=== PATIENT | female | born 1980 ===

== ENCOUNTER 2018-01-27 16:34 | Emergency (ER) | payer MEDICAID ==
[2018-01-27 16:38] VITALS: RESP 20
[2018-01-27 17:02] LABS: HCG,QUALITATIVE URINE POSITIVE (NEGATIVE)
[2018-01-27 17:08] LABS: SQUAMOUS EPITHIAL 3 /hpf (0-5); URINE BACTERIA MANY (<OCC); URINE BILIRUBIN NEGATIVE (NEGATIVE); URINE BLOOD NEGATIVE (NEGATIVE); URINE CLARITY Hazy (Clear); URINE COLOR Yellow (YELLOW); URINE GLUCOSE (UA) NORMAL (Normal); URINE LEUKOCYTE ESTERASE 3+ Leu/uL (Negative); URINE PROTEIN NEGATIVE (NEGATIVE); URINE UROBILINOGEN NORMAL mg/dL (0.2-1.0)
[2018-01-27] MEDS ORDERED: Sodium Chloride 0.9% 500 ML IV ONE (17:23)
[2018-01-27] MEDS ORDERED: DiphenhydrAMINE 50 mg/ml Inj IVP STA (17:23)
[2018-01-27 17:47] LABS: BASO % 0.5 % (0.0-2.0); EOS # 0.2 K/uL (0.0-0.7); EOS % 2.3 % (0.0-4.0); HEMOGLOBIN 12.7 g/dL (11.0-16.0); LYMPH # 1.8 K/uL (1.0-4.3); LYMPH % 18.5 % (20.0-40.0); MEAN CELL VOLUME 89.4 fL (81.0-99.0); MEAN CORPUSCULAR HEMOGLOBIN 30.6 pg (27.0-31.0); MEAN CORPUSCULAR HGB CONC 34.2 g/dL (33.0-37.0); MEAN PLATELET VOLUME 8.7 fL (7.2-11.7); MONO # 0.7 K/uL (0.0-0.8); MONO % 7.6 % (0.0-10.0); NEUT % 71.1 % (50.0-75.0); NRBC % 0.1 % (0.0-2.0); RBC 4.14 Mil/uL (3.80-5.20); RED CELL DISTRIBUTION WIDTH 12.9 % (11.5-14.5); WHITE BLOOD COUNT 9.8 K/uL (4.8-10.8)
[2018-01-27] MEDS ORDERED: DiphenhydrAMINE 50 mg/ml Inj ONE (17:51)
[2018-01-27] MEDS ORDERED: Sodium Chloride 0.9% 1,000 ML ONE (17:52)
[2018-01-27 18:02] LABS: ALB/GLOB RATIO 1.1 (1.0-2.1); ALT/SGPT 17 U/L (9-52); AST/SGOT 19 U/L (14-36); BLOOD UREA NITROGEN 6 mg/dL (7-17); CALCIUM 9.8 mg/dl (8.6-10.4); GFR NON-AFRICAN AMERICAN > 60
--- NOTE | 2018-01-27 18:14 | C.PDOC ---
History Of Present Illness 37 year old female presents to the ED with dysuria for 4 days. She also complains of a frontal headache, nausea and vomiting for today. Patient notes taking 2 tablets of Tylenol, 500mg each, around 5 am but felt no relief. Patient is currently 13 weeks . . Denies any vaginal bleeding, chest pain, abdominal pain, fever, diarrhea and SOB. Time Seen by Provider: 01/27/18 16:45 Chief Complaint (Nursing): Female Genitourinary History Per: Patient History/Exam Limitations: no limitations Onset/Duration Of Symptoms: Days Current Symptoms Are (Timing): Still Present Associated Symptoms: Nausea, Vomiting. denies: Fever, Diarrhea, Chest Pain Recent travel outside of the [place]: No Past Medical History Reviewed: Historical Data, Nursing Documentation, Vital Signs Vital Signs: Last Vital Signs Temp 98 F 01/27/18 16:36 Pulse 105 H 01/27/18 16:36 Resp 20 01/27/18 16:36 BP 116/79 01/27/18 16:36 Pulse Ox 97 01/27/18 16:36 Family History: States: No Known Family Hx - Social History Hx Alcohol Use: No Hx Substance Use: No - Immunization History Hx Tetanus Toxoid Vaccination: No Hx Influenza Vaccination: No Hx Pneumococcal Vaccination: No Review Of Systems Constitutional: Negative for: Fever, Chills Cardiovascular: Negative for: Chest Pain Respiratory: Negative for: Shortness of Breath Gastrointestinal: Positive for: Nausea, Vomiting. Negative for: Abdominal Pain, Diarrhea Genitourinary: Positive for: Dysuria. Negative for: Vaginal Bleeding Neurological: Positive for: Headache (frontal ) Physical Exam - Physical Exam Appears: Well, Non-toxic, No Acute Distress Skin: Normal Color, Warm, Dry Head: Atraumatic, Normacephalic Eye(s): bilateral: Normal Inspection Oral Mucosa: Moist Neck: Normal ROM, Supple Chest: Symmetrical Cardiovascular: Rhythm Regular, No Murmur Respiratory: Normal Breath Sounds, No Rales, No Rhonchi, No Wheezing Gastrointestinal/Abdominal: Normal Exam, Soft, No Tenderness, No Guarding, No Rebound, Other (gravid ) Extremity: Normal ROM Extremity: Bilateral: Atraumatic Pulses: Left Radial: Normal, Right Radial: Normal, Left Dorsalis Pedis: Normal, Right Dorsalis Pedis: Normal Neurological/Psych: Oriented x3, Normal Speech, Normal Cognition Gait: Steady ED Course And Treatment - Laboratory Results Result Diagrams: 01/27/18 17:42 01/27/18 17:42 O2 Sat by Pulse Oximetry: 97 (RA) Pulse Ox Interpretation: Normal - CT Scan/US Pelvic US Other Rad Studies (CT/US): Read By Radiologist, Radiology Report Reviewed CT/US Interpretation: Procedure. OB Pelvic Ultrasound. History. Pelvic pain. Comparison. {None available.}. Findings. number- Single. position- Cephalic. heart rate- 168 beats per minute. Estimated ultrasound gestational age- 14 weeks, 4 days. The following measurements were obtained: BPD 2.61 cm- 14 weeks 4 days. HC 9.90 cm- 14 weeks 4 days. AC 7.98 cm- 14 weeks 3 days. FL 1.52 cm- 14 weeks 3 days. Uterine fibroids are seen measuring 2.1 x 1.9 x 1.2 cm posterior intramural and 2.5 x 2 x 7.6 cm fundal intramural. Cervix: Measures 4.1 cm. Long and closed. No cervical abnormality seen. Right ovary. Not seen. Left ovary. Measures 3.5 x 1.9 x 3.1 cm. Normal flow. IMPRESSION: 1. Single, live, intrauterine gestation with a composite gestational age of 14 weeks, 4 days. 2. Limited anatomy. 3. Limited OB study. 4. Uterine fibroids. . Electronically signed on Jan 27, 2018 9:40:43 PM EDT by: Aime Oconnell M.D., RENETTA Certified By ABR & CBC[employer]. Fellowship Trained MRI and CT Specialist Progress Note: Labs, urinalysis, transvaginal US and blood work ordered. Diphenhydramine, Nitrofurantoin, Metoclopramide and IV fluids administered. Disposition Counseled Patient/Family Regarding: Studies Performed, Diagnosis, Need For Followup, Rx Given - Disposition Referrals: Roney Griffith MD [Medical Doctor] - Disposition: HOME/ ROUTINE Disposition Time: 22:05 Condition: STABLE Additional Instructions: FOLLOW UP WITH YOUR DOCTOR IN 1-2 DAYS USE MEDICATION DIRECTED RETURN TO EMERGENCY ROOM IF YOUR SYMPTOMS WORSEN SEGUIR CON REEVES MDICO EN 1-2 ALMARAZ UTILICE MEDICAMENTOS CAROL SE DIRIGE VUELVA A LA IONA DE EMERGENCIA SI ANTOLIN SNTOMAS SE TAPIA AADIDO Prescriptions: Nitrofurantoin Macrocrystals [Macrobid] 1 cap PO BID #14 cap Instructions: Urinary Tract Infection, Adult (DC) Forms: [facility] (Romanian) Print Language: HUNGARIAN - Clinical Impression Clinical Impression: UTI in - Scribe Statement The provider has reviewed the documentation as recorded by the Scribe (Viktor Becker) All medical record entries made by the Scribe were at my direction and personally dictated by me. I have reviewed the chart and agree that the record accurately reflects my personal performance of the history, physical exam, medical decision making, and the department course for this patient. I have also personally directed, reviewed, and agree with the discharge instructions and disposition.
[2018-01-27 21:42] VITALS: O2SAT 97
[2018-01-27 22:55] VITALS: BP 106/59; PULSE 82; TEMP 98.2
--- NOTE | 2018-01-28 10:03 | US ---
Date of service: 01/27/2018 PROCEDURE: OB Pelvic Ultrasound HISTORY: PELVIC PAIN, LMP: 10/20/2017 COMPARISON: None available. FINDINGS: UTERUS: Gestational sac: Single live intrauterine fetus in cephalic presentation. Placenta is anterior. BPD: 2.61 cm corresponding to 14 weeks and 4 days of gestational age. AC: 7.98 cm corresponding to 14 weeks and 3 days of gestational age. HC: 9.90 cm corresponding to 14 weeks and 4 days of gestational age. FL: 1.52 cm corresponding to 14 weeks and 3 days of gestational age. Heart rate: bpm. age (Ultrasound estimated): 14 weeks and 4 days Ceci-gestational hemorrhage: None. Date of delivery (Ultrasound estimated) : 07/24/2018 There is a 2.5 x 2.0 x 1.6 cm subserosal posterior fundal fibroid and 2.1 x 1.9 x 2.1 cm posterior wall intramural fibroid in the midbody of the uterus. CERVIX: Measures 4.1 cm. Long and closed. No cervical abnormality seen. RIGHT OVARY: Not visualized. LEFT OVARY: Measures 3.5 x 1.9 x 3.1 cm. No solid mass. Normal flow. FREE FLUID: None. OTHER FINDINGS: None. IMPRESSION: Single live intrauterine fetus in vertex presentation with mean gestational age of 14 weeks and 4 days. The estimated date of delivery by ultrasound is 07/24/2018. The ultrasound dates correspond with the clinical dates. Fibroid uterus, the larger subserosal posterior fundal fibroid measures 2.5 x 2.0 x 1.6 cm. Please note this is a limited OB ultrasound performed on an emergent basis. Dedicated anatomic survey is advised.
== END 2018-01-27 22:30 | disposition home or self-care (01) ==
LOC: C.ER 16:34
DX: O23.42 Unspecified infection of urinary tract in pregnancy, second trimester (principal); Z3A.14 14 weeks gestation of pregnancy
CPT/HCPCS: 76815; 80053; 81001; 84702; 84703; 85025; 87086; 96361; 96374; 96375; 99285; J1200; J2765; J7040

== ENCOUNTER 2018-05-04 11:45 | Emergency (ER) | payer MEDICAID ==
[2018-05-04 13:10] LABS: SQUAMOUS EPITHIAL 4 /hpf (0-5); URINE BACTERIA RARE (<OCC); URINE BILIRUBIN NEGATIVE (NEGATIVE); URINE BLOOD NEGATIVE (NEGATIVE); URINE CLARITY Clear (Clear); URINE COLOR Yellow (YELLOW); URINE GLUCOSE (UA) NORMAL (Normal); URINE LEUKOCYTE ESTERASE TRACE Leu/uL (Negative); URINE PROTEIN 1+ mg/dL (NEGATIVE); URINE UROBILINOGEN NORMAL mg/dL (0.2-1.0)
--- NOTE | 2018-05-06 13:03 | OBHP ---
Datetime: 05/04/2018 12:48 IP Adm Impression: , intrauterine IP Chief Complaint Other: Blood in urine IP Admit Plan: Discharge home Admit Comment, IP Provider: LISSETTE ID [id number] 37 y.o. , LMP 10/20/17, THEODORE 07/27/18, EGA 28 weeks c/o blood in urine ("red, red") at 1100 hour s at time of urinating. This is the first time this has ever happened. Denies any trauma to vagina or perineum. Last had sexual intercourse > 1 month ago. No change in foods/fruits. No new undergarments , or personal hygiene products. (+) AFM. Denies VB, Ctx. care: [facility] Last visit 04/25/18; next visit 05/09. 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 Denies abnormal Pap, STIs. Diagnosed leiomyomata this . PMH: denies PSH: denies NKDA Meds: PNV - QD Soc Hx: denies tobacco, illicit drug or EtOH use. x 3 years. 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 Fam Hx:Mother alive 62 - HTN. Father alive 65 - DM. MGM - liver CA P.E.: as above. Small, mildly obese in NAD; visibly apprehensive. Awake, alert, oriented to time, person and place. Assessment: 37 y.o. P0, 28 weeks, S/P 1 episode of grsss hematuria (urine specimen provided in Ob- ED is clear. 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 R/O UTI. Jodi alvarado 1 tracing. Clinically stable. Plan: 1) U/A Addendum: - U/A: S.G. 1.018, pH 7; leuk esterase - trace. RBC 19; urine protein 1+; all else neg Assessment: Hematuria - resolved spontaneously. Patient encouraged to increase p.o. intake of wate r, achieving 1/2 body weight in ounces of water; and to add 1 glass of cranberry juice. Patient expre ssed an understainding and agrees. Patient is clinically stable. Plan: 1) Discharge home 2) As above. 3) Reviewed S/S PTL 4) Keep scheduled appointments Pelvic Type - PN: Adequate Extremities - PN: Normal Abdomen - PN: Normal Back - PN: Normal Breast - PN: Not Done Lungs - PN: Normal Heart - PN: Normal Thyroid - PN: Not Done Neurologic - PN: Normal HEENT - PN: Normal General - PN: Normal FHR - Baseline A Provider: 150 Contraction Comments Provider: none Comments, ACOG Physical Exam: Abdomen: Gravid. Soft. Non tender Perineum: no blood from or evidence of trauma to urethral meatus. Sterile vaginal exam: no blood on examining hand All other systems reviewed and are negative Gestation - Est Wks by US: 28.0 EGA AdmitDate IP: 28.0 Vital Signs Provider: Reviewed; Within Normal Limits IP Chief Complaint: Other NICHD Variability Prov Fetus A: Moderate 6-25bpm NICHD Accel Fetus A IP Provider: 10X10 FHR Category Provider Fetus A: Category I NICHD Decel Fetus A IP Provider: None Dilatation, Provider: 0 Effacement, Provider: 0 Station, Provider: n/a Genitourinary Exam: Normal DTRs - PN: Not Done
[2018-05-06 17:02] VITALS: BP 107/64; PULSE 120; RESP 18; TEMP 97.8; O2SAT 98
== END 2018-05-04 12:42 | disposition home or self-care (01) ==
LOC: C.EROB 11:45
DX: O26.893 Other specified pregnancy related conditions, third trimester (principal); R31.0 Gross hematuria; Z3A.28 28 weeks gestation of pregnancy